=== PATIENT | female | born 1975 | race Caucasian/White ===

== ENCOUNTER 2016-05-31 12:17 | Inpatient (IN) | payer MEDICAID ==
[2016-05-31] MEDS ORDERED: NS 1,000 ML IV ONE (12:19)
--- NOTE | 2016-05-31 12:19 | EDPHY ---
HPI/HX/ROS/PE/MDM Narrative: CHIEF COMPLAINT: Chest pain, known DVT. HPI: The patient is a 41-year-old female diagnosed with DVT 5 days ago who presents via EMS for chest pain and shortness of breath that began this morning. The DVT was diagnosed at [facility] on Sunday and she was started on Lovenox and Coumadin, which she has been compliant with. She denies cough, fever , vomiting, or other complaints. EMS administered 324mg PO Aspirin en route. REVIEW OF SYSTEMS: Aside from elements discussed in the HPI, a comprehensive 10-point review of systems was reviewed and is negative. PMH: DVT, ACL/MCL/meniscus tear. SOCIAL HISTORY: Does not abuse alcohol or drugs. PHYSICAL EXAM: General: Patient is alert, in no acute distress. ENT: Eyes are normal to inspection. ENT inspection normal. Neck: Normal inspection. Full range of motion. Respiratory: No respiratory distress. Breath sounds normal bilaterally. Cardiovascular: Mildly tachycardic rate. Strong peripheral pulses. Abdomen: The abdomen is nontender to palpation. There are no peritoneal signs. There are normal bowel sounds. Back: Normal to inspection. No tenderness to palpation. Skin: Normal color. No rash. Warm and dry. Extremities: Left leg swollen and in knee immobilizer brace. Neuro: Oriented x3. Normal motor function. Normal sensory function. Portions of this note were transcribed by an ED scribe. I personally performed the history, physical exam, and medical decision making; and confirm the accuracy of the information in the transcribed note. ED Course: I met EMS on arrival and obtained a report from the pottery decoration designer. An IV was established and labs ordered. 1L IV saline administered. EKG, Chest CTA obtained. Troponin elevated at 0.298. 1430: Consulted with Dr. Alfredo, hospitalist. She accepts admission. She will also consult with hematology. 1439: CT results conveyed to me as PE by Dr. Lin, radiology. Study: CTA of the chest. Indication: Chest pain, SOB. Results: Pulmonary embolism. The study was read by the radiologist Dr. Lin. I viewed the images myself on the PACS system. EKG was ordered and interpreted by myself. Please see [employer] Packet system for official reading. Sinus tachycardia. MDM: This patient presents with signs and symptoms concerning for PE, unfortunately confirmed by CTA. The patient has an elevated troponin which is most likely a sequela of PE, but this will need to be followed. It is unclear whether this represents a true heparin failure or not. We will consult hematology. The patient has been admitted to the hospitalist service. I see no signs of PNA, PTX, TAD or chest wall trauma. - Data Points Laboratory Results: Laboratory Results 05/31/16 13:16 05/31/16 13:16 05/31/16 05/31/16 05/31/16 13:16 13:16 13:16 WBC RBC Hgb Hct MCV MCH MCHC RDW Plt Count MPV Neut % (Auto) Lymph % (Auto) [place]y % (Auto) Eos % (Auto) Baso % (Auto) Nucleat RBC Rel Count Absolute Neuts (auto) Absolute Lymphs (auto) Absolute Monos (auto) Absolute Eos (auto) Absolute Basos (auto) Absolute Nucleated RBC Immature Gran % Immature Gran # PT 18.3 SEC H SEC (12.0-15.0) INR 1.52 H (0.83-1.16) APTT 46.6 SEC H SEC (23.0-38.0) Sodium 138 mEq/L mEq/L (134-144) Potassium 4.4 mEq/L mEq/L (3.5-5.2) Chloride 106 mEq/L mEq/L (97-110) Carbon Dioxide 22 mEq/l mEq/l (22-31) Anion Gap 10 mEq/L mEq/L (8-16) BUN 13 mg/dL mg/dL (7-23) Creatinine 0.6 mg/dL mg/dL (0.6-1.0) Estimated GFR > 60 Glucose 90 mg/dL mg/dL (70-100) Calcium 9.8 mg/dL mg/dL (8.5-10.4) Troponin I 0.298 ng/mL H ng/mL (0-0.034) 05/31/16 13:16 WBC 6.48 10^3/uL 10^3/uL (3.80-9.50) RBC 5.48 10^6/uL H 10^6/uL (4.18-5.33) Hgb 14.9 g/dL g/dL (12.6-16.3) Hct 44.3 % % (38.0-47.0) MCV 80.8 fL L fL (81.5-99.8) MCH 27.2 pg L pg (27.9-34.1) MCHC 33.6 g/dL g/dL (32.4-36.7) RDW 13.8 % % (11.5-15.2) Plt Count 305 10^3/uL 10^3/uL (150-400) MPV 9.3 fL fL (8.7-11.7) Neut % (Auto) 59.2 % % (39.3-74.2) Lymph % (Auto) 32.6 % % (15.0-45.0) Dooly % (Auto) 4.9 % % (4.5-13.0) Eos % (Auto) 2.2 % % (0.6-7.6) Baso % (Auto) 0.5 % % (0.3-1.7) Nucleat RBC Rel Count 0.0 % % (0.0-0.2) Absolute Neuts (auto) 3.84 10^3/uL 10^3/uL (1.70-6.50) Absolute Lymphs (auto) 2.11 10^3/uL 10^3/uL (1.00-3.00) Absolute Monos (auto) 0.32 10^3/uL 10^3/uL (0.30-0.80) Absolute Eos (auto) 0.14 10^3/uL 10^3/uL (0.03-0.40) Absolute Basos (auto) 0.03 10^3/uL 10^3/uL (0.02-0.10) Absolute Nucleated RBC 0.00 10^3/uL 10^3/uL (0-0.01) Immature Gran % 0.6 % % (0.0-1.1) Immature Gran # 0.04 10^3/uL 10^3/uL (0.00-0.10) PT INR APTT Sodium Potassium Chloride Carbon Dioxide Anion Gap BUN Creatinine Estimated GFR Glucose Calcium Troponin I Medications Given: Discontinued Medications Sodium Chloride (Ns) 1,000 mls @ 0 mls/hr IV ONCE ONE PRN Reason: Wide Open Stop: 05/31/16 12:20 Last Admin: 05/31/16 13:20 Dose: 1,000 mls General Initial Vital Signs: Initial Vital Signs Temperature (C) 36.5 C 05/31/16 12:27 Heart Rate 108 H 05/31/16 12:27 Respiratory Rate 20 05/31/16 12:27 Blood Pressure 128/102 H 05/31/16 12:27 O2 Sat (%) 93 05/31/16 12:27 O2 Delivery Mode Nasal Cannula O2 (L/minute) 2 Allergies/Adverse Reactions: codeine [Codeine] Allergy (Unknown, Verified 04/06/14 01:54) Rash hydrocodone bitartrate [From Vicodin] Allergy (Unknown, Verified 04/06/14 01:54) Rash latex [Latex] Allergy (Unknown, Verified 04/06/14 01:54) ondansetron HCl [From Zofran] Allergy (Unknown, Verified 04/06/14 01:54) metoclopramide HCl [From Reglan] Allergy (Verified 04/06/14 01:54) Home Medications: Medication Instructions Recorded Acetaminophen [Tylenol 325mg (*)] 650 mg PO Q6 PRN 05/31/16 Enoxaparin [Lovenox 80 MG (*)] 80 mg SQ BID 05/31/16 LORazepam [Ativan (*)] 0.5 - 1 mg PO BID PRN 05/31/16 Tears/Dextran 70/Hypromellose 1 drop EACHEYE Q2 PRN 05/31/16 [Natural Balance Tears (*)] Warfarin Sodium [Coumadin 5MG (*)] 5 mg PO HS 05/31/16 Departure - Departure Disposition: [facility] In[facility] Acute Clinical Impression: Elevated troponin Pulmonary embolism Qualifiers: Pulmonary embolism type: other Chronicity: acute Acute cor pulmonale presence: without acute cor pulmonale Qualified Code(s): I26.99 - Other pulmonary embolism without acute cor pulmonale Condition: Fair Report Scribed for: Jens Al Report Scribed by: Torin Rossi Date of Report: 05/31/16 Time of Report: 12:21
--- NOTE | 2016-05-31 12:42 | CPEKG ---
Heart Rate: 104 RR Interval: 577 P-R Interval: 152 QRSD Interval: 86 QT Interval: 320 QTC Interval: 421 P Bejou: 54 QRS Bejou: -13 T Wave Bejou: 27 EKG Severity - OTHERWISE NORMAL ECG - EKG Impression: SINUS TACHYCARDIA Electronically Signed By: Jens Al 31-May-2016 14:51:15
[2016-05-31 13:28] LABS: % IMMATURE GRANULYOCYTES 0.6 % (0.0-1.1); ABSOLUTE IMMATURE GRANULOCYTES 0.04 10^3/uL (0.00-0.10); ADD DIFF? NO; ADD MORPH? NO; ADD SCAN? NO; ATYPICAL LYMPHOCYTE FLAG 0 (0-99); FRAGMENT RBC FLAG 0 (0-99); HEMATOCRIT 44.3 % (38.0-47.0); HEMOGLOBIN 14.9 g/dL (12.6-16.3); LEFT SHIFT FLG 0 (0-99); LIPEMIA HEMOLYSIS FLAG 80 (0-99); MEAN CELL HEMOGLOBIN 27.2 pg (27.9-34.1); MEAN CELL HEMOGLOBIN CONCENTR. 33.6 g/dL (32.4-36.7); MEAN CELL VOLUME 80.8 fL (81.5-99.8); MEAN PLATELET VOLUME 9.3 fL (8.7-11.7); PLATELET CLUMPS FLAG 10 (0-99); PLATELET COUNT 305 10^3/uL (150-400); RED BLOOD CELL COUNT 5.48 10^6/uL (4.18-5.33); RED CELL DISTRIBUTION WIDTH 13.8 % (11.5-15.2)
[2016-05-31 13:57] LABS: ANION GAP 10 mEq/L (8-16); CALCIUM 9.8 mg/dL (8.5-10.4); CARBON DIOXIDE 22 mEq/l (22-31); CHLORIDE 106 mEq/L (97-110); CREATININE 0.6 mg/dL (0.6-1.0); GLOMERULAR FILTRATION RATE > 60; GLUCOSE 90 mg/dL (70-100); POTASSIUM 4.4 mEq/L (3.5-5.2); SODIUM 138 mEq/L (134-144)
[2016-05-31 13:58] LABS: INR 1.52 (0.83-1.16); PROTIME(PATIENT) 18.3 SEC (12.0-15.0)
[2016-05-31 13:59] LABS: APTT 46.6 SEC (23.0-38.0)
[2016-05-31 14:00] LABS: TROPONIN I 0.298 ng/mL (0-0.034)
[2016-05-31] MEDS ORDERED: IOPAMIDOL (ISOVUE 370) 100 ML BTL IV ONE (14:00)
[2016-05-31] MEDS ORDERED: LORazepam 2 MG/ML INJ IVP ONE ×2 (14:28→22:42)
[2016-05-31] MEDS ORDERED: ONDANSETRON 4 MG/2 ML VIAL IVP PRN (14:36)
[2016-05-31] MEDS ORDERED: ONDANSETRON DISINTEGRATING 4 MG TAB PO PRN (14:36)
[2016-05-31] MEDS ORDERED: PROMETHAZINE HCL 25 MG SUPPR PR PRN (16:36)
[2016-05-31] MEDS ORDERED: TEARS/DEXTRAN 70/HYPROMELLOSE 15 ML OPHT.BTL EACHEYE PRN (16:39)
--- NOTE | 2016-05-31 17:22 | GHP ---
[f rep st] HISTORY AND PHYSICAL DATE OF ADMISSION: 05/31/2016 CHIEF COMPLAINT: Chest pain. HISTORY OF PRESENT ILLNESS: A 41-year-old female, who had a recent knee injury while jumping on a t rampoline. Subsequent to that injury developed a DVT, which was diagnosed a week ago at an outside hospital. The patient was initiated on subcutaneous Lovenox and warfarin. The patient reports medi cation compliance with both her injection and her tablet medication. Visited her orthopedic surgeon for plans related to evaluation an elective surgery for a meniscal tear. The patient returned home that evening and worked on the physical therapy recommendations they had made and she noted a sensa tion of pain above the calf which she had the DVT diagnosed a week previous. The patient described the pain as superior to the flex in her knee where her initial DVT pain had been lower. She describ ed it as a pinching/pulling pain which did not last for very long. Hours after experiencing this di scomfort, patient noted some nausea, vomited once and then went to bed. When she woke up in the mor sherine, she had a sensation of substernal chest pain and noted palpitations. She checked her blood pr essure, noted that her heart rate was in the 120s, when typically her baselines are in the 80s. Wit h persistent pain, she presented to the emergency department. In the ED, she was describing persist ent pleuritic substernal pain. No distinct shortness of breath. Is still experiencing palpitations . Denies any nausea or abdominal pain. Denies any increasing pain of her left lower extremity. De nies any worsening lower extremity edema. Denies any headache, any vision changes. Denies subjecti ve fevers or chills, dysuria, hematuria. PAST MEDICAL HISTORY: 1. Recent DVT diagnosis thought secondary to a knee injury and immobility. 2. Diagnosis of asthma which requires nearly no maintenance medications. SOCIAL HISTORY: Negative for tobacco. She drinks alcohol 1-2 times a month. No illicit drugs or m arijuana. FAMILY HISTORY: Negative for any clotting events or disorders. ADVANCED DIRECTIVES: Patient is full cor, full tube. REVIEW OF SYSTEMS: A 10-point review of systems is negative with the exception of that reported in the HPI. PHYSICAL EXAMINATION: VITAL SIGNS: Blood pressure 128/102, heart rate 108, respiratory rate 20, 93 % on room air, 36.5. GENERAL: This is a young female in mild distress. HEENT: Notable for dry mu cous membranes. Eye exam is negative for any icterus. CARDIAC: Patient is tachycardic but regular . PULMONARY: Has diminished breath sounds at bilateral bases. Is reluctant to take full inspirati on. GASTROINTESTINAL: Positive bowel sounds. Abdomen is obese, soft in all 4 quadrants with cornelia l bowel sounds. MUSCULOSKELETAL: Patient has no lower extremity edema. SKIN: Negative for any ra shes. DATA: White count 6.4, hematocrit 44.3, platelets at 305. INR 1.5. Troponin 0.298. IMAGING: CTA of the chest, which I personally reviewed and interpreted, shows bilateral pulmonary e mboli extending from distal main pulmonary arteries into the segmental and subsegmental branches. E KG which I personally reviewed and interpreted, shows sinus rhythm. Normal axis, normal intervals w ith no acute ST-T changes. ASSESSMENT AND PLAN: This is a 41-year-old female, presenting with acute pulmonary embolus. 1. Acute pulmonary embolus. Patient is presenting with pleuritic chest pain, tachycardia and a pre ceding history of deep venous thrombosis. Discussed the case with Dr. Cohen from Hematology. Alth ough likely the clot already known in her left lower extremity dislodged and caused a pulmonary embo lism. It is difficult to confidently state that Lovenox had been affective. It is recommendation t hat we switch anticoagulants Xarelto oral and discontinue Lovenox and warfarin therapy. We will caren e the switch this evening and admit the patient for cardiac monitoring and right heart evaluation. Have ordered telemetry as well as a transthoracic echocardiogram. Patient will need a hyper coag ev aluation prior to the discontinuation of her 6-month therapy with Xarelto. 2. Sinus tachycardia, presumed secondary to pulmonary embolism. We will evaluate with echo and tel e overnight. 3. Indeterminate troponin. Again, suspect related to pulmonary embolism. We will check 1 more tro ponin this evening and follow the patient's clinical course. 4. Prophylaxis. On full-dose anticoagulation. 5. Diet: Regular. DISPOSITION: I expect in less than 2 midnights if the patient's cardiac monitoring is normal and he r echocardiogram does not show evidence of right heart strain. I have discussed the case with Dr. Yanelis kirk from Hematology. They can follow patient in the clinic post disposition for hyper coag leeann p prior to completion of her 6-month therapy of anticoagulation. /[id number]/MODL
[2016-05-31] MEDS: RIVAROXABAN 15 MG TAB PO SCH (17:30)
[2016-05-31] MEDS: LORazepam 0.5 MG TAB PO PRN (19:53)
[2016-05-31] MEDS: oxyCODONE IR 5 MG TAB PO PRN (23:13)
[2016-06-01 04:37] LABS: % IMMATURE GRANULYOCYTES 0.5 % (0.0-1.1); ABSOLUTE IMMATURE GRANULOCYTES 0.04 10^3/uL (0.00-0.10); ADD DIFF? NO; ADD MORPH? NO; ADD SCAN? NO; ATYPICAL LYMPHOCYTE FLAG 0 (0-99); FRAGMENT RBC FLAG 0 (0-99); HEMATOCRIT 40.6 % (38.0-47.0); HEMOGLOBIN 13.2 g/dL (12.6-16.3); LEFT SHIFT FLG 0 (0-99); LIPEMIA HEMOLYSIS FLAG 80 (0-99); MEAN CELL HEMOGLOBIN 27.6 pg (27.9-34.1); MEAN CELL HEMOGLOBIN CONCENTR. 32.5 g/dL (32.4-36.7); MEAN CELL VOLUME 84.8 fL (81.5-99.8); MEAN PLATELET VOLUME 9.6 fL (8.7-11.7); PLATELET CLUMPS FLAG 0 (0-99); PLATELET COUNT 280 10^3/uL (150-400); RED BLOOD CELL COUNT 4.79 10^6/uL (4.18-5.33); RED CELL DISTRIBUTION WIDTH 14.1 % (11.5-15.2)
[2016-06-01 04:44] LABS: INR 3.96 (0.83-1.16); PROTIME(PATIENT) 39.4 SEC (12.0-15.0)
[2016-06-01 04:56] LABS: ANION GAP 10 mEq/L (8-16); CALCIUM 9.2 mg/dL (8.5-10.4); CARBON DIOXIDE 20 mEq/l (22-31); CHLORIDE 106 mEq/L (97-110); CREATININE 0.6 mg/dL (0.6-1.0); GLOMERULAR FILTRATION RATE > 60; GLUCOSE 112 mg/dL (70-100); POTASSIUM 4.1 mEq/L (3.5-5.2); SODIUM 136 mEq/L (134-144)
[2016-06-01] MEDS: RIVAROXABAN 15 MG TAB PO SCH ×2 (08:06→17:52)
[2016-06-01] MEDS: ACETAMINOPHEN 325 MG TAB PO PRN ×2 (08:09→13:52)
--- NOTE | 2016-06-01 09:41 | HOSPPROG ---
Hospitalist Progress Note Assessment/Plan: DIAGNOSES: -ACUTE PULMONARY EMBOLUS OCCURRING SEVERAL DAYS AFTER STARTING LOVENOX AND COUMADIN FOR DVT OF THE LEG; TACHYCARDIA, DYSPNEA, MILDLY ELEVATED TROPONIN AND HYPOXIA ARE PRESENT -DVT OF LEG DIAGNOSED APPROXIMATELY 1 WEEK AGO -RECENT LIGAMENTOUS INJURY OF THE LEFT KNEE At this point she has slightly improved symptoms, with less pain and dyspnea, and is no longer tachycardic and has stable blood pressures. Her echocardiogram has not been done yet. Based on her overall clinical syndrome she is at relatively low risk of complication at this time but given the fact that she had late PEG on therapy for her DVT, and with her dyspnea and tachycardia on presentation, will watch at least 1 more day here to ensure she is improving well. It is difficult to know whether she had embolization due to failure of the prescribed therapy, or whether she just had trouble consolidating the clots in her leg. PLANS: -Continue current anticoagulation or with new oral agent -await echocardiogram and review that with her -Very limited physical activity until tomorrow evening when she has been 48 hours on the Xarelto SUBJECTIVE: Slight improvement in dyspnea and discomfort No palpitations fevers or cough No bleeding OBJECTIVE Vitals reviewed: She is now no longer tachycardic, otherwise stable Sports Journalist, my review: Sinus rhythm Exam: alert oriented skin warm dry color ok resps not labored lungs clear BSs heart regular abd soft nondistended nontender, bowel sounds present No bleeding or bruising identified limbs warm with good color, mild edema still of the left ankle calf area iv site ok Laboratory data: 2nd troponin slightly increased at 0.7 Objective: Vital Signs Temp Pulse Resp BP Pulse Ox 36.9 C 96 21 H 121/85 H 98 06/01/16 07:40 06/01/16 07:40 06/01/16 07:40 06/01/16 07:40 06/01/16 07:40 Laboratory Results 06/01/16 03:37 06/01/16 03:37 05/31/16 06/01/16 06/02/16 06:59 06:59 06:59 Intake Total 1550 Output Total 400 Balance 1150 PT 39.4 SEC (12.0-15.0) H D 06/01/16 03:37 INR 3.96 (0.83-1.16) H 06/01/16 03:37 ICD10 Worksheet Patient Problems: Problems Problem Status Onset Elevated troponin Acute Pulmonary embolism Acute Cyclic vomiting syndrome Acute Dysmenorrhea Acute
--- NOTE | 2016-06-01 11:47 | ECHO ---
[id number] + + [address] : : [place] [address] : : [phone] + + Adult Echocardiographic Report + ---------+ :Name: SONAL RICHTER EStudy Date: 06/01/2016 10:28 AM : : Hospital Admission Number: [id number] Mary chan: 203: :: 1975 Gender: Female Height: 64 i n : :Age: 41 yrs Race: WH Weight: 190 lb : :Reason For Study: Eval RV Fx : : BSA: 1.9 met ers2 : :History: New PE, Post knee injury : + ---------+ MMode/2D Measurements \T\ Calculations IVSd: 0.95 cm RVDd: 4.1 cm FS: 38.8 % Ao root diam: 3.2 cm LVPWd: 0.93 cm LVIDd: 4.7 cm EDV(Teich): 102.4 ml ACS: 1.9 cm LVIDs: 2.9 cm ESV(Teich): 31.6 ml EF(Teich): 69.1 % Normal Measurement Values: + + :LVIDd (3.5-5.7cm) IVSd (0.6-1.1cm) LVPWd (0.6-1.1cm) Aortic Root (2.0-3.7cm)Left Atrium (1.5-4.0cm): :LV Vol(d) (76-115ml) LV Vol(s) (29-48ml) Ejec Fraction (50-65%)PV Feng (0.6- 1.2m/s) TV Feng (0.4-1.0m/s) : :MV E Feng (0.8-1.0m/s)MV A Feng (0.3-1.0m/s)LVOT Feng (0.7-1.2m/s) Asc Ao Feng ( 0.9-1.8m/s) : + + Doppler Measurements \T\ Calculations MV E max feng: Ao V2 max: LV V1 max: PA V2 max: 65.6 cm/sec 114.0 cm/sec 80.5 cm/sec 92.3 cm/sec MV A max feng: Ao max P.2 mmHgLV V1 max PG: PA max P.8 cm/sec 2.6 mmHg 3.4 mmHg MV E/A: 1.2 TR max feng: 361.0 cm/sec TR max P.1 mmHg RAP systole: 5.0 mmHg RVSP(TR): 57.1 mmHg Left Ventricle The left ventricle is normal in size. There is normal left ventricular wall thickness. The left ventricular ejection fraction is normal. Ejection Fraction = 69%. Flattened septum is consistent with RV pressure/volume overload. Right Ventricle The right ventricle is mildly dilated. The right ventricular systolic function is mildly reduced. Atria The left atrial size is normal. Right atrial size is normal. Mitral Valve The mitral valve is normal. There is no mitral valve stenosis. There is no mitral regurgitation noted. Tricuspid Valve Normal tricuspid valve. There is mild tricuspid regurgitation. Right ventricular systolic pressure is 51mmHg. There is Doppler evidence for moderate pulmonary hypertension. Aortic Valve The aortic valve opens well. There is no aortic stenosis. There is no aortic insufficiency. Pulmonic Valve The pulmonic valve is normal in structure and function. There is no pulmonic valvular regurgitation. Great Vessels The aortic root is normal size. Pericardium/Pleural There is no pericardial effusion. Conclusion A complete two-dimensional transthoracic echocardiogram was performed (2D, M-mode, Doppler and color flow Doppler). The left ventricular ejection fraction is normal. Ejection Fraction = 69%. Flattened septum is consistent with RV pressure/volume overload. The right ventricular systolic function is mildly reduced. The left atrial size is normal. Right atrial size is normal. The mitral valve is normal. There is mild tricuspid regurgitation. Right ventricular systolic pressure is 51mmHg. There is Doppler evidence for moderate pulmonary hypertension. The aortic valve opens well. There is no pericardial effusion. Final Reading Physician: Kike Jones signed on 06/01/2016 11:46 AM Ordering Physician: Elvi Alfredo Performed By: Antwon Wilson, CS
[2016-06-01] MEDS: oxyCODONE IR 5 MG TAB PO PRN (20:46)
[2016-06-02] MEDS: LORazepam 0.5 MG TAB PO PRN ×2 (00:21→18:00)
[2016-06-02] MEDS: oxyCODONE IR 5 MG TAB PO PRN ×3 (05:39→18:00)
[2016-06-02] MEDS: RIVAROXABAN 15 MG TAB PO SCH ×2 (08:10→17:15)
--- NOTE | 2016-06-02 10:07 | HOSPPROG ---
Hospitalist Progress Note Assessment/Plan: DIAGNOSES: -acute pulmonary embolus with moderate pulmonary hypertension at 51 and troponin elevations; occurring several days after starting lovenox and coumadin for dvt of the leg; tachycardia, dyspnea, mildly elevated troponin and hypoxia are present -dvt of leg diagnosed approximately 1 week ago -recent ligamentous injury of the left knee symptoms continue to improve though still with some chest pain dyspnea and weakness. At this point doing well with Xarelto. Due to her pulmonary hypertension and elevated troponin she is at moderately high risk, and given the occurrence of PE after nearly a week on Lovenox Coumadin would be follow her 1 more day here on Xarelto before discharge. We will try and get her up for in room mobility with PT today for her knee. PLANS: -Continue current anticoagulation or with new oral agent -await echocardiogram and review that with her -physical activity upon feet in room today then activity as tolerated tomorrow -potential discharge January 03 if stable SUBJECTIVE: Slight improvement in dyspnea and discomfort No palpitations fevers or cough No bleeding OBJECTIVE Vitals reviewed: She is now no longer tachycardic, otherwise stable Network Support Engineer, my review: Sinus rhythm Exam: alert oriented skin warm dry color ok resps not labored lungs clear BSs heart regular abd soft nondistended nontender, bowel sounds present No bleeding or bruising identified limbs warm with good color, mild edema still of the left ankle calf area iv site ok Objective: Vital Signs Temp Pulse Resp BP Pulse Ox 36.7 C 85 16 121/88 H 95 06/02/16 08:00 06/02/16 08:00 06/02/16 08:00 06/02/16 08:00 06/02/16 08:00 06/01/16 06/02/16 06/03/16 06:59 06:59 06:59 Intake Total 1180 Output Total 300 Balance 880 PT 39.4 SEC (12.0-15.0) H D 06/01/16 03:37 INR 3.96 (0.83-1.16) H 06/01/16 03:37 ICD10 Worksheet Patient Problems: Problems Problem Status Onset Elevated troponin Acute Pulmonary embolism Acute Cyclic vomiting syndrome Acute Dysmenorrhea Acute
[2016-06-02] MEDS: ACETAMINOPHEN 325 MG TAB PO PRN (20:28)
[2016-06-03] MEDS: oxyCODONE IR 5 MG TAB PO PRN ×3 (00:09→23:39)
[2016-06-03] MEDS: RIVAROXABAN 15 MG TAB PO SCH ×2 (08:10→18:12)
--- NOTE | 2016-06-03 10:27 | HOSPPROG ---
Hospitalist Progress Note Assessment/Plan: 41-year-old healthy woman is admitted with DVT/PE after sustaining a knee injury while jumping on a trampoline. She apparently had mcl/ACL/meniscal tear. Her left leg has been in a knee immobilizer since the or . He she was diagnosed with a DVT and placed on Lovenox and Coumadin within a week of her injury. After several days of anticoagulation she developed acute chest pain and was noted to have bilateral pulmonary emboli. # pulmonary embolus and DVT. Provoked by any injury. Possible failure of Lovenox and Coumadin * Continue Xarelto * Patient to get up and walk today and check oxygen saturations on room air possible DC today or tomorrow morning * Echo reviewed, normal EF normal right-sided pressures # knee injury. Will eventually need surgery for ACL repair. However would recommend holding off until treatment of her pulmonary embolism 3-6 months. # obesity Subjective: Patient new to me, chart reviewed. Had episode of chest pain this morning which responded to Percocet. She is quite nervous because she has had recurrent pulmonary embolism despite anticoagulation. Given moderate volume may need additional midnight stay Objective: Vital Signs Temp Pulse Resp BP Pulse Ox 36.7 C 87 16 116/85 H 99 06/03/16 07:49 06/03/16 07:49 06/03/16 07:49 06/03/16 07:49 06/03/16 07:49 06/02/16 06/03/16 06/04/16 05:59 05:59 05:59 Intake Total 1180 1700 Output Total 300 1550 Balance 880 150 PT 39.4 SEC (12.0-15.0) H D 06/01/16 03:37 INR 3.96 (0.83-1.16) H 06/01/16 03:37 - Physical Exam Constitutional: obese, uncomfortable Eyes: PERRL, anicteric sclera, EOMI Ears, Nose, Mouth, Throat: moist mucous membranes, ears appear normal, no oral mucosal ulcers Cardiovascular: regular rate and rhythym, no murmur, rub, or gallop, edema ( Mild left leg) Respiratory: no respiratory distress, no rales or rhonchi, clear to auscultation Gastrointestinal: normoactive bowel sounds, soft, non-tender abdomen Genitourinary: no bladder fullness Skin: warm, normal color Musculoskeletal: other (Knee immobilizer on left leg) Neurologic: AAOx3, No facial droop Psychiatric: interacting appropriately, not anxious, not encephalopathic ICD10 Worksheet Patient Problems: Problems Problem Status Onset Cyclic vomiting syndrome Acute Dysmenorrhea Acute Elevated troponin Acute Pulmonary embolism Acute
[2016-06-04] MEDS: LORazepam 0.5 MG TAB PO PRN (00:53)
[2016-06-04] MEDS: RIVAROXABAN 15 MG TAB PO SCH (09:07)
[2016-06-04] MEDS: oxyCODONE IR 5 MG TAB PO PRN (11:17)
--- NOTE | 2016-06-04 11:34 | PDIAF ---
- Diagnosis Diagnosis: pe, acl tear Code Status: Full Code - Medication Management Discharge Medications: Medications to Continue on Transfer Tears/Dextran 70/Hypromellose [Natural Balance Tears (*)] 1 drop EACHEYE Q2 PRN 05/31/16 [Last Taken Unknown] LORazepam [Ativan (*)] 0.5 - 1 mg PO BID PRN #15 tab 06/04/16 [Last Taken Unknown] Rivaroxaban [Xarelto 15mg (*)] 15 mg PO BIDMEAL #36 tab 06/04/16 [Last Taken Unknown] Rivaroxaban [Xarelto] 20 mg PO DAILY #30 tablet 06/04/16 [Last Taken Unknown] oxyCODONE IR [Oxycodone Ir (*)] 5 mg PO Q4HRS PRN #30 tab 06/04/16 [Last Taken Unknown] Discharge Medications: Refer to the Discharge Home Medication list for PRN reason. - Orders Services needed: Home Care, Registered Nurse, Physical Therapy Home Care Face to Face: I certify that this patient was under my care and that I had the required [id number] encounter meeting the encounter requirements on the discharge day. My findings support the fact that the patient is homebound as defined in CMS Chapter 7 Medicare Benefits Manual 30.1.1, The condition of the patient is such that there exists a normal inability to leave home and consequently, leaving home would require a considerable and taxing effort. Diet Recommendation: no restrictions on diet Diet Texture: Regular Texture Diet - Follow Up Care Current Providers and Referrals: Patient,NotPresent [Unknown] - As per Instructions
--- NOTE | 2016-06-04 13:13 | GDS ---
[f rep st] DISCHARGE SUMMARY DIAGNOSES: 1. Pulmonary embolism/deep venous thrombosis. 2. Obesity. 3. Left anterior cruciate tear any knee injury. PROCEDURES DONE: CT angiogram showing bilateral pulmonary emboli extending from distal main pulmona ry arteries into segmental and subsegmental branches. Echocardiogram showing EF of 69%, mild RV pre ssure overload with a right ventricular systolic pressure of 51 mm. HOSPITAL COURSE: The patient is a 41-year-old woman who had a knee injury a few weeks ago. Her kne e has been immobilized, and she was diagnosed with a DVT, placed on Lovenox and Coumadin. Over the next 10 days, she did relatively well, however, on the therapy, developed increasing chest pain, cam e into the emergency department, and was diagnosed with bilateral pulmonary emboli. At that time, h er therapy was switched from Lovenox to Xarelto. She has done relatively well with that. Echocardi ogram did show mild with pulmonary hypertension, likely secondary to her PE. She is tole rating the medication well. She has had no further complications and has minimal oxygen requirement s at the time of discharge. CONDITION ON DISCHARGE: Good. VITAL SIGNS: She is afebrile, heart rate 80, blood pressure 113/77. She is 96% on room air. GENERAL: She is alert and oriented. HEART: Regular. LUNGS: Clear. S he has minimal edema in her left leg. Her left leg is still in a knee immobilizer. DISCHARGE MEDICATIONS: Please see discharge medication form. FOLLOWUP: With her primary care physician, Dr. Jose Elias Castaneda in [facility]. She will eventually need a followup echocardiogram to make sure her RV pressure overload and pul monary hypertension resolves with treatment of her pulmonary embolus. Her anticoagulation at the ti me of discharge is Xarelto. She was switched from Lovenox and Coumadin to Xarelto, given the failur e and development of PE on those medications. Total time spent with the patient on the date of discharge and coordination of care is 35 minutes. /[id number]/MODL
[2016-06-04 13:24] VITALS: BP 126/81; PULSE 91; RESP 16; TEMP 97.8; O2SAT 95
== END 2016-06-04 16:03 | disposition home health service (06) | DRG 176 ==
LOC: EDUNIT# → F2W 15:51 → OBSVTOIN 06-01 09:41
PROVIDERS: ADMIT Hospitalist; ATTEND Hospitalist
DX: I26.99 Other pulmonary embolism without acute cor pulmonale (principal); E66.9 Obesity, unspecified; Z86.718 Personal history of other venous thrombosis and embolism; S83.512D Sprain of anterior cruciate ligament of left knee, subsequent encounter; I27.2 Other secondary pulmonary hypertension; Z79.01 Long term (current) use of anticoagulants
CPT/HCPCS: 96374; 97110-GP; 97116-GP; 97161-GP; 97165-GO; 97530-GP; 97535-GO; G0378; J2060; Q9967